=== PATIENT | male | born 1960 | race Two or more races ===

== ENCOUNTER 2024-12-31 07:50 | Outpatient (RCR) | payer MEDICAID, SELFPAY | END 2025-01-04 23:59 | disposition home or self-care (01) | LOC: SCTC 07:50 | PROVIDERS: PCP Physician Assistant; Referring Provider Physician Assistant; Visit Provider Nurse Practitioner Family | DX: D61.818 Other pancytopenia (principal); F10.11 Alcohol abuse, in remission | CPT/HCPCS: 99213; G0463 ==

== ENCOUNTER 2025-02-04 07:50 | Outpatient (CLI) | payer MEDICAID, SELFPAY ==
[2025-02-03 09:54] LABS: Basophils # (Auto) 0.0 Thou/mm3 (0.0-0.2); Basophils % (Auto) 1 % (0-2.5); Eosinophils # (Auto) 0.0 Thou/mm3 (0.0-0.5); Eosinophils % (Auto) 0 % (0-10); Hematocrit 31.1 % (41.0-53.0); Hemoglobin 9.8 g/dL (13.5-16.0); Immature Granulocytes Auto 0.10 Thou/mm3 (0.00-0.00); Lymphocytes # (Auto) 0.5 Thou/mm3 (1.0-4.8); Lymphocytes % (Auto) 39 % (10-50); Mean Corpuscular HGB Conc 31.5 g/dl (31.0-37.0); Mean Corpuscular Hemoglobin 31.3 pg (25.0-35.0); Mean Corpuscular Volume 99 fL (80-100); Monocytes # (Auto) 0.1 Thou/mm3 (0.0-0.8); Monocytes % (Auto) 10 % (0-12); Neutrophils # (Auto) 0.5 Thou/mm3 (1.8-7.7); Neutrophils % (Auto) 42 % (37-80); Nucleated Red Blood Cell # 0.00 Thou/mm3 (0.00-0.00); Nucleated Red Blood Cell % 0 /100 WBC (0); RDW Standard Deviation 55.0 fL (35.1-43.9); Red Blood Count 3.13 Miln/mm3 (4.50-5.90)
[2025-02-03 10:08] LABS: INR 1.1 (0.9-1.3); Partial Thromboplastin Time 31.3 Seconds (22.0-36.0); Prothrombin Time 12.0 Seconds (9.0-12.2)
[2025-02-03 11:07] LABS: Platelet Count 74 Thou/mm3 (140-440); White Blood Count 1.2 Thou/mm3 (3.8-10.6)
[2025-02-03 11:33] LABS: Path Review Blood Smear Sent to Pathologist; Slide Review Platelets confirmed
[2025-02-04 08:12] VITALS: BP 110/58; PULSE 58; RESP 18; TEMP 36.9; O2SAT 100
--- NOTE | 2025-02-04 08:30 | XR_ITS ---
Examination: CT-guided percutaneous bone marrow aspiration left posterior superior iliac crest CT-guided percutaneous bone biopsy deep left posterior superior iliac crest CT pelvis without intravenous contrast Date and time: February 04, 2025 1005 hours INDICATIONS: Diagnosis neutropenia unspecified Informed consent provided. A timeout was completed verifying correct patient, procedure, site and positioning. . Technique: Axial 3 mm sections were obtained for localization of the left posterior superior iliac crest Appropriate area is marked. The patient's site was prepped and draped in sterile fashion Maximal sterile barrier technique utilized, including hand hygiene Local anesthesia was obtained with 1% lidocaine. Low dose protocols were performed. One or more of the following dose reduction techniques were used; automated exposure control, adjustment of the mA and/or KV according to patient size, use of iterative reconstruction technique. Utilizing CT fluoroscopic guidance 14-gauge bone biopsy needle placed in the left superior iliac crest 10 cc marrow aspirate obtained and 5 cm bone core obtained Patient appears in stable condition during this procedure. At completion of the procedure, the patient is in satisfactory condition. Estimated blood loss 2 cc Complete pathology report to follow. Impression: Successful CT-guided percutaneous bone marrow aspiration left posterior superior iliac crest Successful CT-guided percutaneous bone biopsy deep left posterior superior iliac crest
[2025-02-04] MEDS: SODIUM CHLORIDE 0.9% 500 ML 500 ML 20 ML IV (09:47)
[2025-02-04] MEDS: fentaNYL CIT INJ 50 mCg/ML AMP 2ML IVP (10:00)
[2025-02-04 10:14] VITALS: BP 105/62; PULSE 67; RESP 20; TEMP 37.2; O2SAT 99
[2025-02-04 10:16] LABS: Flow Cytometry* See Sep Rpt
[2025-02-04 10:20] VITALS: BP 124/40; PULSE 72; RESP 16; O2SAT 99
[2025-02-04 10:35] VITALS: BP 129/77; PULSE 62; RESP 15; O2SAT 100
[2025-02-04 10:50] VITALS: BP 113/65; PULSE 64; RESP 16; O2SAT 100
[2025-02-04 10:57] VITALS: BP 100/61; PULSE 69; RESP 19; TEMP 36.9; O2SAT 100
== END 2025-02-04 11:10 | disposition home or self-care (01) ==
PROVIDERS: Radiology Diagnostic Radiology; PCP Physician Assistant; Referring Provider Nurse Practitioner Family; Visit Provider Nurse Practitioner Family
DX: D70.9 Neutropenia, unspecified (principal)
CPT/HCPCS: 38221; 36415; 77012; 85025; 85610; 85730; J3010; J7999

== ENCOUNTER → 2025-02-10 | Outpatient (CLI) | payer MEDICAID, SELFPAY ==
--- NOTE | 2025-02-10 15:00 | XR_ITS ---
Examination: CT chest with intravenous contrast CT abdomen with intravenous contrast CT pelvis with intravenous contrast 2-D coronal and sagittal reconstructions Time of exam: February 10, 2025, 1511 hours INDICATIONS: Diagnosis neutropenia 1 month ago CTDI: vol (mGy) : 14.84 DLP: (mGycm): 639 Technique: Multiple axial images of the chest, abdomen and pelvis with intravenous contrast, 3.0 mm slice thickness. Images obtained post intravenous injection Isovue 370 60 cc. 2-D sagittal and coronal reconstructions. Low dose protocols were performed. One or more of the following dose reduction techniques were used; automated exposure control, adjustment of the mA and/or KV according to patient size, use of iterative reconstruction technique. Findings: No thoracic aortic aneurysmal dilatation or dissection Pulmonary artery segments are not enlarged No pulmonary artery filling defects. No paratracheal tracheobronchial or bronchopulmonary adenopathy 2 mm pulmonary nodule right upper lobe image 148 5 mm pulmonary nodule right lower lobe image 165 No pneumonia or pulmonary edema or pleural disease No visualized liver lesion Absent gallbladder No extrahepatic biliary tract dilatation No pancreatic mass Liver measures 15.5 cm Significant splenomegaly 15 cm Lesion in the anterior spleen, axial image 148, measures 29 mm No adrenal mass No renal or ureteral calculi Aorta normal size Normal appendix No abdominal or pelvic lymphadenopathy No bowel obstruction Prostatomegaly, AP dimension 4.4 cm Urinary bladder wall thickening up to 10 mm axial image 265 Severe osteopenia 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
== END | disposition home or self-care (01) ==
LOC: CCTX 02-12 08:02
PROVIDERS: PCP Physician Assistant; Referring Provider Nurse Practitioner Family; Visit Provider Nurse Practitioner Family
DX: R91.8 Other nonspecific abnormal finding of lung field (principal); R16.1 Splenomegaly, not elsewhere classified; N40.0 Benign prostatic hyperplasia without lower urinary tract symptoms; N32.89 Other specified disorders of bladder
CPT/HCPCS: 71260; 71270; 74177; 74178; A4649; Q9967

== ENCOUNTER 2025-03-02 14:32 | Outpatient (RCR) | payer MEDICAID, SELFPAY | END 2025-03-06 23:59 | disposition home or self-care (01) | LOC: SCTC 14:32 | PROVIDERS: PCP Physician Assistant; Referring Provider Physician Assistant; Visit Provider Internal Medicine Hematology & Oncology | DX: D46.9 Myelodysplastic syndrome, unspecified (principal); L53.9 Erythematous condition, unspecified | CPT/HCPCS: 99212; 99424; 99425; G0463 ==

== ENCOUNTER 2025-03-26 15:11 | Outpatient (RCR) | payer MEDICAID, SELFPAY ==
--- NOTE | 2025-03-30 01:31 | CTCFLWUP_ITS ---
Patient: GENNY JAQUEZ : 1960 Page 2 of 2 FOLLOW UP NOTE DATE OF SERVICE: 03/26/2025 NAME: GENNY JAQUEZ ACCOUNT: [id number] : 1960 AGE: 64 INTERVAL HISTORY: Patient is newly diagnosed with acute myeloid leukemia. Patient is planned for myelo ablative chemotherapy at [facility] followed by transplant. 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 He reports unintentional weight loss, having decreased from 185 pounds last year to 157 pounds currently, despite maintaining his usual diet. The patient previously took iron supplementation for a few months to address his anemia but was instructed to discontinue it due to lack of improvement in his lab values. He has not taken iron for a couple of months. He mentions feeling a hard nodule internally in the left upper abdominal area, which he has had for some time. The patient denies any bleeding concerns or history of hepatitis. Mr. Jaquez admits to a history of alcohol consumption for about 20 years but reports stopping two years ago due to feeling tired. He now states he drinks only occasionally, unable to recall his last alcoholic beverage. The patient was taking diclofenac obtained from [place] but did not bring the medication to the appointment. He works full-time in agriculture, performing outdoor work. The patient denies experiencing night sweats or pain in his neck, armpits, or legs. He also denies any known history of liver problems or high cholesterol. 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 Tobacco?Use:?Denies ETOH?Use:?Socailly?- Drug?Note:?Denies Social?History?Note:?Lives?with? MEDICATIONS: 1. None Medications Last Reconciled by Elizabeth Mon MD on 03/26/2025 ALLERGIES: No Known Drug Allergies REVIEW OF SYSTEMS: A complete 14-point review of systems was performed and is negative except as noted in interval history. PHYSICAL EXAMINATION: VITAL SIGNS: Temperature?98, B/P?118/73, Oxygen?Saturation?99% Weight?148?lbs PAIN: 0 - No pain ECOG Performance Status: 1 - Symptomatic; ambulatory; restricted in strenuous activity GENERAL APPEARANCE: Appears well, in no apparent distress, appropriately interactive. HEENT: Normocephalic, no temporal wasting, normal conjunctiva, no scleral icterus, normal hearing, lips without lesions, neck normal range of motion. CARDIOVASCULAR: Not assessed. PULMONARY: Normal respiratory effort, no respiratory distress or use of accessory muscles, speaking in full sentences, no tachypnea. ABDOMEN: No palpable lumps, nontender EXTREMITIES: No pedal edema or cyanosis. SKIN: erythema, non-itchy, non-painful rash in belly button area that is drying NEUROLOGIC: Alert and oriented x4. PSHYCHIATRIC: Appropriate affect, mood normal, behavior normal, intact thought and speech. 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, presenting for follow up Acute myeloid leukemia Patient's bone marrow was concerning for increased blasts Referral was placed to [facility] Patient is now being planned for chemotherapy with likely follow-up of transplant Will get a notes from leukemia expert Patient advised to follow at [facility] and with us only on as-needed basis Will continue to support patient with labs check transfusions as needed Patient can only get leukoreduced blood Further management as per [facility] leukemia team Alcohol use Assessment: Patient reports a history of alcohol use for approximately 20 years, which he stopped 2 years ago due to fatigue. Currently admits to occasional alcohol consumption. Plan: - Educate patient on the importance of alcohol cessation RETURN TO CLINIC: I reviewed the diagnosis, prognosis, and recommended treatment/procedure options with the patient (and/or their legal field service representative), including the potential benefits, risks, side effects and alternative therapies. We also discussed the option of no treatment and the possibility of clinical trial participation, if applicable. All questions were addressed, and they demonstrated understanding. They provided informed consent to proceed with the proposed plan of care. BILLING AND COMPLIANCE: I reviewed external records from providers outside my specialty as summarized above. I spent a total of 50 minutes on this patient?s care on the day of their visit excluding time spent related to any billed procedures. This time includes time spent with the patient as well as time spent documenting in the medical record, reviewing patients records and tests, obtaining history, placing orders, communicating with other healthcare professionals, counseling the patient, family or caregiver, and/or care coordination for the diagnoses above. Electronically Signed by: George Quinteros MD T: 1:28 AM CC: PCP: Dorys Rosales Referring: Dorys Rosales This document was completed utilizing speech recognition software. Grammatical errors, random word insertions, pronoun errors, and incomplete sentences are an occasional consequence of this system due to software limitations, ambient noise, and hardware issues. Any formal questions or concerns about the content, text or information contained within the body of this dictation should be directly addressed to the provider for clarification.
== END 2025-04-05 23:59 | disposition home or self-care (01) ==
LOC: SCTC 15:11
PROVIDERS: PCP Physician Assistant; Referring Provider Physician Assistant; Visit Provider Internal Medicine Hematology & Oncology
DX: C92.00 Acute myeloblastic leukemia, not having achieved remission (principal)
CPT/HCPCS: 99212; G0463

== ENCOUNTER → 2025-04-07 | Outpatient (CLI) | payer MEDICAID, SELFPAY ==
--- NOTE | 2025-04-07 14:00 | ECHO_ITS ---
Patient Info Name: Linda Jaquez Age: 64 years : 1960 Gender: Male Ht: 155 cm Wt: 67 kg BSA: 1.72 m2 BP: 89 HR: 79 bpm Exam Date: 04/07/2025 1:49 PM Admit Date: 04/07/2025 Site: [facility] Room Number: OP Patient Status: O Exam Type: CA echo doppler complete Racker Octave Board: Chrystal Castellon Ordering Physician: Trinidad Gomez Referring Physician: Trinidad Gomez Study Info Indications Neutropenia, unspecified - Primary Location: SDIM Left Ventricular Outflow Tract Name Value Normal LVOT 2D LVOT Diameter 1.9 cm LVOT Doppler LVOT Peak Velocity 93 cm/s LVOT Mean Gradient 2 mmHg LVOT VTI 18 cm LVOT VTI/AV VTI Ratio 0.7 LVOT Stroke Volume 51 ml Pulmonic Valve Name Value Normal PV Doppler PV Peak Velocity 116 cm/s Mitral Valve Name Value Normal MV Doppler MV Decel Cowley 476 cm/s2 MV PHT 47 ms MV Area (PHT) 4.7 cm2 4.0-5.0 MV Diastolic Function MV E Peak Velocity 77 cm/s MV A Peak Velocity 67 cm/s MV E/A 1.2 MV Annular TDI MV Septal e' Velocity 12.3 cm/s MV E/e' (Septal) 6.3 MV Lateral e' Velocity 17.5 cm/s MV E/e' (Lateral) 4.4 MV e' Average 14.90 cm/s MV E/e' (Average) 5.3 Tricuspid Valve Name Value Normal TV Regurgitation Doppler TR Peak Velocity 166 cm/s Estimated PAP/RSVP RA Pressure 3 mmHg <=5 PA Systolic Pressure 14 mmHg <36 RV Systolic Pressure 14 mmHg <36 TV Annular TDI TV Lateral Hodan s' Velocity 15.2 cm/s >=9.5 Aortic Valve Name Value Normal AV 2D/MM AV Cusp Sep (MM) 1.4 cm AV Doppler AV Peak Velocity 118 cm/s AV Mean Gradient 3 mmHg AV VTI 25 cm AV Area (Cont Eq VTI) 2.1 cm2 >=3.0 AV Area (Cont Eq Paul) 2.2 cm2 AV DI (Paul) 0.79 AV Regurgitation 2D LVOT Area 2.8 cm2 Ventricles Name Value Normal LV Dimensions 2D/MM IVS Diastolic Thickness (2D) 0.8 cm 0.6-1.0 LVID Diastole (2D) 4.1 cm 4.2-5.8 LVIW Diastolic Thickness (2D) 0.9 cm 0.6-1.0 LVID Systole (2D) 2.7 cm 2.5-4.0 LVOT Diameter 1.9 cm LV Mass (2D Cubed) 105.59 g 88.00-224.00 LV Mass Index (2D Cubed) 61 g/m2 49-115 Relative Wall Thickness (2D) 0.42 <=0.42 IVS/LVIW Diastolic Thickness (2D) 0.89 0.00-1.50 LV Fractional Shortening/Ejection Fraction 2D/MM LV Fractional Shortening (2D) 34 % 25-43 LV EF (2D Teichholz) 64 % RV Dimensions 2D/MM TV Lateral Hodan s' Velocity 15.2 cm/s >=9.5 Atria Name Value Normal LA Dimensions LA Volume (4C A-L) 23 ml LA Volume (BP A-L) 33 ml Left Ventricle Left ventricular chamber dimension is normal. Left ventricular systolic function is normal with visually estimated ejection fraction of 60-65%. There is concentric remodeling noted in the left ventricle. Left ventricular segmental wall motion is normal. There is normal diastolic function in the left ventricle. Right Ventricle Right ventricular chamber dimension is normal. Right ventricular systolic function is normal. Left Atrium Left atrial chamber dimension is normal. Right Atrium Right atrial chamber dimension is normal. Aortic Valve The aortic valve is trileaflet. There is no aortic valve sclerosis. There is no aortic valve stenosis with a peak velocity of 118 cm/s, mean gradient of 3 mmHg, and aortic valve area of 2.1 cm2. There is no aortic valve regurgitation. Pulmonic Valve The pulmonic valve is normal. There is no pulmonic valve stenosis. There is trace pulmonic regurgitation. Mitral Valve The mitral valve has normal leaflets. There is no mitral valve stenosis. There is trace mitral valve regurgitation. Tricuspid Valve The tricuspid valve leaflets are normal. There is no tricuspid valve stenosis. There is trace tricuspid valve regurgitation. No pulmonary hypertension, estimated pulmonary arterial systolic pressure is 14 mmHg. Pericardium/Pleural The pericardium appears normal. There is no pericardial effusion. No pleural effusion visualized. Inferior Vena Cava Normal inferior vena cava with >50% collapse upon inspiration consistent with normal right atrial pressure, 3 mmHg. Aorta The aortic measurements are indexed to age and body surface area. The aortic root at the sinus of Valsalva is not well visualized. The prox ascending aorta is not well visualized. Summary 1. Left ventricle size is normal and systolic function is normal. Estimated ejection fraction is 60-65%. There is normal diastolic function. 2. Right ventricle chamber size is normal and systolic function is normal. Estimated RVSP is 14 mmHg. 3. There is trace mitral valve regurgitation. 4. There is trace tricuspid valve regurgitation. 5. There is no pulmonic valve stenosis and trace regurgitation. 6. The left atrium is normal. The right atrium is normal. 7. Normal IVC with estimated RA pressure 3 mmHg. Report Signatures Finalized by Logan Delaney on 04/07/2025 05:03 PM
== END | disposition home or self-care (01) ==
LOC: SDIM 13:22
PROVIDERS: PCP Physician Assistant; Referring Provider Nurse Practitioner Family; Visit Provider Nurse Practitioner Family
DX: I08.1 Rheumatic disorders of both mitral and tricuspid valves (principal)
CPT/HCPCS: 93306